=== PATIENT | female | born 1970 | race Caucasian/White ===

== ENCOUNTER 2024-04-04 10:24 | Emergency (ER) | payer MEDICARE, MEDICAID ==
[~2024-04-04] VITALS: Ht 162.6 cm; Wt 135.5 kg
[2024-04-04] MEDS ORDERED: QUET100T2 (10:42)
[2024-04-04] MEDS ORDERED: TRAZ1TAB14 (10:42)
[2024-04-04] MEDS ORDERED: CLON0.5T2 (10:42)
[2024-04-04] MEDS ORDERED: PARO20TA3 (10:42)
[2024-04-04] MEDS: methocarbamoL 500 MG TAB PO ONE (13:51)
[2024-04-04] MEDS: KETOROLAC 60MG 2ML VIAL IM ONE (13:51)
[2024-04-04] MEDS: CEPHALEXIN 500 MG CAP PO ONE (13:51)
[2024-04-04] MEDS ORDERED: METH-1164 PO (15:28)
[2024-04-04] MEDS ORDERED: IBUP-1022 PO (15:28)
[2024-04-04] MEDS ORDERED: CEPH500C PO (15:28)
[2024-04-04 15:40] VITALS: BP 148/72; TEMP 97.9; O2SAT 98
== END 2024-04-04 15:42 | disposition home or self-care (01) ==
LOC: M ED 10:24
DX: M62.830 Muscle spasm of back (principal); L03.011 Cellulitis of right finger
CPT/HCPCS: 81001; 87086; 96372; 99283; J1885

== ENCOUNTER → 2024-04-04 | Outpatient (CLI) | payer MEDICARE, MEDICAID ==
[~2024-04-04] MED LIST: CEPH500C PO; CLON0.5T2; IBUP-1022 PO; METH-1164 PO; PARO20TA3; QUET100T2; TRAZ1TAB14
[2024-04-04 10:38] LABS: HEMATOCRIT 37.9 % (36.0-47.0); HEMOGLOBIN 11.8 g/dl (12.0-15.5); MEAN CORPUSCULAR HEMOGLOBIN 27.2 pg (27.0-33.0); MEAN CORPUSCULAR HGB CONC 31.1 g/dl (32.0-36.5); MEAN CORPUSCULAR VOLUME 87.3 fl (80.0-96.0); PLATELET COUNT, AUTOMATED 356 10^3/uL (150-450); RED BLOOD COUNT 4.34 10^6/uL (4.00-5.40); WHITE BLOOD COUNT 8.5 10^3/uL (4.0-10.0)
[2024-04-04 11:08] LABS: ALBUMIN 3.2 G/DL (3.2-5.2); ALKALINE PHOSPHATASE 111 U/L (35-104); ALT/SGPT 54 U/L (7.0-40); AST/SGOT 38 U/L (<34); BILIRUBIN,TOTAL 0.2 MG/DL (0.3-1.2); BLOOD UREA NITROGEN 9 MG/DL (9-23); CALCIUM LEVEL 9.3 MG/DL (8.5-10.1); CARBON DIOXIDE LEVEL 27 MMOL/L (20-31); CHLORIDE LEVEL 102 MMOL/L (98-107); CHOLESTEROL LEVEL 275 MG/DL (<200); CHOLESTEROL RISK RATIO 9.85 (<5); CREATININE FOR GFR 0.56 MG/DL (0.55-1.30); GLOMERULAR FILTRATION RATE > 60.0 (>51); GLUCOSE, FASTING 198 MG/DL (60-100); HDL CHOLESTEROL 27.9 MG/DL (>40); NON-HDL-C 247.1 MG/DL; POTASSIUM SERUM 3.7 MMOL/L (3.5-5.1); SODIUM LEVEL 138 MMOL/L (136-145); TOTAL PROTEIN 7.2 G/DL (5.7-8.2); TRIGLYCERIDES LEVEL 473 MG/DL (<150)
[2024-04-04 11:12] LABS: FREE T4 1.02 NG/DL (0.89-1.76); THYROID STIMULATING HORMONE 2.002 uIU/ML (0.55-4.78); TOTAL 25(OH) VITAMIN D 8.8 NG/ML (20.0-100.0)
== END ==
LOC: M EKG 09:42
PROVIDERS: ATTEND Nurse Practitioner Psychiatric/Mental Health
DX: F43.0 Acute stress reaction (principal); E07.9 Disorder of thyroid, unspecified; E78.00 Pure hypercholesterolemia, unspecified

== ENCOUNTER 2024-04-08 09:40 | Emergency (ER) | payer MEDICARE, MEDICAID ==
[~2024-04-08] VITALS: Ht 162.6 cm; Wt 138.8 kg
[2024-04-08] MEDS ORDERED: QUET50TA4 (10:23)
[2024-04-08 12:20] VITALS: BP 147/83; TEMP 97; O2SAT 97
== END 2024-04-08 12:43 | disposition home or self-care (01) ==
LOC: M ED 09:40
DX: I10 Essential (primary) hypertension (principal); J45.909 Unspecified asthma, uncomplicated; F43.10 Post-traumatic stress disorder, unspecified; G47.00 Insomnia, unspecified; F41.9 Anxiety disorder, unspecified; F17.290 Nicotine dependence, other tobacco product, uncomplicated; Z79.899 Other long term (current) drug therapy

== ENCOUNTER → 2024-04-12 | Outpatient (CLI) | payer MEDICARE, MEDICAID ==
[~2024-04-12] MED LIST changes: +QUET50TA4
== END ==
LOC: M LAB 09:52
PROVIDERS: ATTEND Nurse Practitioner Psychiatric/Mental Health
DX: F33.9 Major depressive disorder, recurrent, unspecified (principal)

== ENCOUNTER → 2024-08-14 | Outpatient (REF) | payer MEDICARE, MEDICAID ==
[2024-08-14 18:25] LABS: CREATININE, URINE 117.2 MG/DL
[2024-08-14 18:26] LABS: MAU/CREAT RATIO 70.8 MCG/MG (0.0-30.0)
[2024-08-14 18:27] LABS: HEMATOCRIT 42.6 % (36.0-47.0); HEMOGLOBIN 13.7 g/dl (12.0-15.5); MEAN CORPUSCULAR HEMOGLOBIN 27.7 pg (27.0-33.0); MEAN CORPUSCULAR HGB CONC 32.2 g/dl (32.0-36.5); MEAN CORPUSCULAR VOLUME 86.1 fl (80.0-96.0); PLATELET COUNT, AUTOMATED 499 10^3/uL (150-450); RED BLOOD COUNT 4.95 10^6/uL (4.00-5.40); WHITE BLOOD COUNT 14.3 10^3/uL (4.0-10.0)
[2024-08-14 18:51] LABS: ALBUMIN 3.7 G/DL (3.2-5.2); ALKALINE PHOSPHATASE 93 U/L (35-104); ALT/SGPT 17 U/L (7.0-40); AST/SGOT 19 U/L (<34); BILIRUBIN,TOTAL 0.4 MG/DL (0.3-1.2); BLOOD UREA NITROGEN 7 MG/DL (9-23); CALCIUM LEVEL 9.8 MG/DL (8.5-10.1); CARBON DIOXIDE LEVEL 25 MMOL/L (20-31); CHLORIDE LEVEL 100 MMOL/L (98-107); CHOLESTEROL LEVEL 326 MG/DL (<200); CHOLESTEROL RISK RATIO 9.39 (<5); CREATININE FOR GFR 0.56 MG/DL (0.55-1.30); GLOMERULAR FILTRATION RATE > 90.0 (>51); GLUCOSE, FASTING 149 MG/DL (60-100); HDL CHOLESTEROL 34.7 MG/DL (>40); NON-HDL-C 291.3 MG/DL; POTASSIUM SERUM 3.9 MMOL/L (3.5-5.1); SODIUM LEVEL 139 MMOL/L (136-145); TOTAL PROTEIN 7.6 G/DL (5.7-8.2); TRIGLYCERIDES LEVEL 569 MG/DL (<150)
[2024-08-14 18:55] LABS: THYROID STIMULATING HORMONE 2.177 uIU/ML (0.55-4.78)
[2024-08-16 12:47] LABS: C-PEPTIDE 5.63 ng/mL (0.80-3.85)
== END ==
LOC: M LAB REF 16:51
PROVIDERS: ATTEND Nurse Practitioner Family
DX: E11.8 Type 2 diabetes mellitus with unspecified complications (principal); E66.01 Morbid (severe) obesity due to excess calories; Z11.3 Encounter for screening for infections with a predominantly sexual mode of transmission; Z72.89 Other problems related to lifestyle

== ENCOUNTER 2024-11-21 07:20 | Emergency (ER) | payer MEDICARE, MEDICAID ==
[~2024-11-21] VITALS: Ht 160 cm; Wt 117.9 kg
[2024-11-21 08:08] LABS: BASO # 0.0 10^3/uL (0.0-0.2); BASO % 0.5 % (0.0-1.0); EOS # 0.1 10^3/uL (0.0-0.5); EOS % 1.4 % (0.0-3.0); LYMPH # 2.8 10^3/uL (1.5-5.0); LYMPH % 38.5 % (24.0-44.0); MONO # 0.4 10^3/uL (0.0-0.8); MONO % 4.8 % (2.0-8.0); NEUTROPHILS # 4.0 10^3/uL (1.5-8.5); NEUTROPHILS % 54.7 % (36.0-66.0); PLATELET COUNT, AUTOMATED 271 10^3/uL (150-450)
[2024-11-21 08:15] LABS: ERYTHROCYTE SEDIMENTATION RATE 67 mm/hr (0-30)
[2024-11-21 08:39] LABS: ALT/SGPT 19 U/L (7.0-40); AST/SGOT 15 U/L (<34); C REACTIVE PROTEIN QUANTITATIV 2.65 MG/DL (<1.0); CALCIUM LEVEL 9.2 MG/DL (8.5-10.1); CARBON DIOXIDE LEVEL 20 MMOL/L (20-31); CHLORIDE LEVEL 109 MMOL/L (98-107); CREATININE FOR GFR 0.62 MG/DL (0.55-1.30); GLOMERULAR FILTRATION RATE > 90.0 (>51); POTASSIUM SERUM 3.7 MMOL/L (3.5-5.1); SODIUM LEVEL 146 MMOL/L (136-145)
[2024-11-21] MEDS: NS (Normal Saline) 0.9% 1,000 ML IV ONE (08:53)
[2024-11-21] MEDS ORDERED: FLUC-1 PO (13:34)
[2024-11-21 13:39] VITALS: BP 177/90; TEMP 97.4; O2SAT 97
== END 2024-11-21 13:53 | disposition home or self-care (01) ==
LOC: M ED 07:20
DX: T81.31XA Disruption of external operation (surgical) wound, not elsewhere classified, initial encounter (principal); E11.9 Type 2 diabetes mellitus without complications; I25.10 Atherosclerotic heart disease of native coronary artery without angina pectoris; I25.2 Old myocardial infarction; Z95.5 Presence of coronary angioplasty implant and graft; N60.02 Solitary cyst of left breast; Z79.899 Other long term (current) drug therapy

== ENCOUNTER → 2025-03-09 | Outpatient (REF) | payer MEDICARE, MEDICAID ==
[~2025-03-09] MED LIST changes: +FLUC-1 PO; -IBUP-1022 PO; +IBUP600T42 PO
[2025-03-09 15:01] LABS: PLATELET COUNT, AUTOMATED 325 10^3/uL (150-450)
[2025-03-09 15:06] LABS: CHOLESTEROL LEVEL 238 MG/DL (<200); CHOLESTEROL RISK RATIO 6.64 (<5); NON-HDL-C 202.2 MG/DL; TRIGLYCERIDES LEVEL 443 MG/DL (<150)
[2025-03-09 15:52] LABS: ESTIMATED AVERAGE GLUCOSE 137.0 MG/DL (60-110)
== END ==
LOC: M LAB REF 14:13
PROVIDERS: ATTEND Nurse Practitioner Family
DX: E11.8 Type 2 diabetes mellitus with unspecified complications (principal)

== ENCOUNTER → 2025-03-13 | Outpatient (REF) | payer MEDICARE, MEDICAID ==
[2025-03-13 13:34] LABS: CREATININE, URINE 84.4 MG/DL
[2025-03-13 13:35] LABS: MALB URINE SIEMENS 14.0 MG/L; MAU/CREAT RATIO 16.5 MCG/MG (0.0-30.0)
== END ==
LOC: M LAB REF 11:58
PROVIDERS: ATTEND Nurse Practitioner Family
DX: E11.8 Type 2 diabetes mellitus with unspecified complications (principal)